=== PATIENT | male | born 1955 | race Caucasian/White ===

== ENCOUNTER 2017-07-27 10:34 | Emergency (ER) | payer MEDICARE, OTHER ==
--- NOTE | 2017-07-27 10:48 | PD ---
HPI Chief Complaint: Psychiatric Symptoms Time Seen by Provider: 10:47 Travel History International Travel<30 days: No Contact w/Intl Traveler<30days: No History of Present Illness HPI 61-year-old male presents emergency department under the [place] act for being seen in the street talking to himself and yelling at himself by a local neighbors. Patient is directable, but cannot answer questions appropriately. He is a poor historian. He has no known drug allergies. [facility] Past Medical History Medical History: Unable to Obtain Social History Alcohol Use: Yes Tobacco Use: Yes Allergies-Medications (Allergen,Severity, Reaction): Coded Allergies: No Known Allergies (Verified Allergy, Unknown, 07/27/17) Review of Systems ROS Limitations: Altered Mental Status, Psychotic Except as stated in HPI: all other systems reviewed are Neg General / Constitutional: No: Fever Eyes: No: Visual changes HENT: No: Headaches Cardiovascular: No: Chest Pain or Discomfort Respiratory: No: Shortness of Breath Gastrointestinal: No: Abdominal Pain Genitourinary: No: Dysuria Musculoskeletal: No: Pain Skin: No Rash Neurologic: No: Weakness Psychiatric: No: Depression Endocrine: No: Polydipsia Hematologic/Lymphatic: No: Easy Bruising Physical Exam Exam Limitations: Poor Historian, Psychotic Narrative GENERAL: Patient is disheveled and confused, and apparently psychotic. SKIN: Warm and dry. Normal color. Normal turgor. Patient has multiple old blisters to both feet with localized erythema and one area of pustular lesions suggestive of MRSA. No deep abscess is noted. HEAD: Atraumatic. Normocephalic. EYES: Pupils equal and round. No scleral icterus. No injection or drainage. ENT: No nasal bleeding or discharge. Mucous membranes pink and moist. Pharynx is clear. Airways patent. NECK: Trachea midline. Supple and nontender. CARDIOVASCULAR: Regular rate and rhythm. RESPIRATORY: No accessory muscle use. Clear to auscultation. Breath sounds equal bilaterally. GASTROINTESTINAL: Abdomen soft, non-tender, nondistended. Hepatic and splenic margins not palpable. MUSCULOSKELETAL: Extremities without clubbing, cyanosis, or edema. No obvious deformities. NEUROLOGICAL: Awake and alert. No obvious cranial nerve deficits. Motor grossly within normal limits. Five out of 5 muscle strength in the arms and legs. Normal speech. Data Data Last Documented VS Vital Signs Date Time Temp Pulse Resp B/P (MAP) Pulse Ox O2 Delivery O2 Flow Rate FiO2 07/27/17 16:46 73 16 160/89 (112) 100 Room Air 07/27/17 10:50 98.6 Orders Orders Complete Blood Count With Diff (07/27/17 10:54) Comprehensive Metabolic Panel (07/27/17 10:54) Thyroid Stimulating Hormone (07/27/17 10:54) Urinalysis - C+S If Indicated (07/27/17 10:54) Psych Screen (07/27/17 10:54) Drug Screen, Random Urine (07/27/17 10:54) Alcohol (Ethanol) (07/27/17 10:54) Alcohol Withdrawal Asmt-Ciwa Q4HX18 (07/27/17 10:54) Flumazenil Inj (Romazicon Inj) (07/27/17 11:00) Lorazepam (Ativan) (07/27/17 11:00) Lorazepam Inj (Ativan Inj) (07/27/17 11:00) Lorazepam (Ativan) (07/27/17 11:00) Lorazepam Inj (Ativan Inj) (07/27/17 11:00) Lorazepam Inj (Ativan Inj) (07/27/17 11:00) Lorazepam Inj (Ativan Inj) (07/27/17 11:00) Sulfamet-Trimeth Ds 800-160 Mg (Bactrim (07/27/17 11:00) Diet Regular Basic (07/27/17 Lunch) Diet Regular Basic (07/27/17 Dinner) Labs Laboratory Tests Test 07/27/17 11:30 07/27/17 13:10 Urine Color YELLOW Urine Turbidity CLEAR Urine pH 5.5 Urine Specific [place] 1.025 Urine Protein NEG mg/dL Urine Glucose (UA) NEG mg/dL Urine Ketones NEG mg/dL Urine Occult Blood TRACE Urine Nitrite NEG Urine Bilirubin NEG Urine Urobilinogen LESS THAN 2.0 MG/DL Urine Leukocyte Esterase NEG Urine RBC 6 /hpf Urine WBC LESS THAN 1 /hpf Urine Squamous Epithelial Cells <1 /hpf Urine Mucus FEW /lpf Microscopic Urinalysis Comment CULT NOT INDICATED Urine Opiates Screen NEG Urine Barbiturates Screen NEG Urine Amphetamines Screen POS Urine Benzodiazepines Screen NEG Urine Cocaine Screen NEG Urine Cannabinoids Screen NEG White Blood Count 9.3 TH/MM3 Red Blood Count 3.63 MIL/MM3 Hemoglobin 11.5 GM/DL Hematocrit 33.9 % Mean Corpuscular Volume 93.3 FL Mean Corpuscular Hemoglobin 31.5 PG Mean Corpuscular Hemoglobin Concent 33.8 % Red Cell Distribution Width 13.6 % Platelet Count 384 TH/MM3 Mean Platelet Volume 6.2 FL Neutrophils (%) (Auto) 65.2 % Lymphocytes (%) (Auto) 18.6 % Monocytes (%) (Auto) 13.8 % Eosinophils (%) (Auto) 1.3 % Basophils (%) (Auto) 1.1 % Neutrophils # (Auto) 6.1 TH/MM3 Lymphocytes # (Auto) 1.7 TH/MM3 Monocytes # (Auto) 1.3 TH/MM3 Eosinophils # (Auto) 0.1 TH/MM3 Basophils # (Auto) 0.1 TH/MM3 CBC Comment DIFF FINAL Differential Comment Blood Urea Nitrogen 18 MG/DL Creatinine 0.64 MG/DL Random Glucose 95 MG/DL Total Protein 6.6 GM/DL Albumin 3.2 GM/DL Calcium Level 8.0 MG/DL Alkaline Phosphatase 60 U/L Aspartate Amino Transf (AST/SGOT) 20 U/L Alanine Aminotransferase (ALT/SGPT) 21 U/L Total Bilirubin 0.2 MG/DL Sodium Level 136 MEQ/L Potassium Level 3.7 MEQ/L Chloride Level 102 MEQ/L Carbon Dioxide Level 25.5 MEQ/L Anion Gap 9 MEQ/L Estimat Glomerular Filtration Rate 127 ML/MIN Thyroid Stimulating Hormone 3rd Gen 0.937 uIU/ML Ethyl Alcohol Level LESS THAN 3 MG/DL MDM Medical Decision Making Medical Screen Exam Complete: Yes Emergency Medical Condition: Yes Differential Diagnosis Psychosis. Bipolar disorder. [place] act. Narrative Course Patient appears medically stable at this time. Psychiatric labs ordered per protocol. Patient is started on Bactrim DS twice daily. Patient is placed on the CIWA protocol. CBC remarkable for hemoglobin of 11.5, hematocrit is 33.9. Urine tox screen is positive for amphetamines. Urinalysis shows trace of occult blood but otherwise normal. Patient is medically cleared for psychiatric evaluation. Psych screen is ordered. Condition: Stable Kin Zarate Jul 27, 2017 10:48
[2017-07-27 10:50] VITALS: BP 157/75; PULSE 81; RESP 20; TEMP 98.6; O2SAT 99
[2017-07-27] MEDS ORDERED: LORazepam 1 MG TAB PO PRN (11:00)
[2017-07-27] MEDS ORDERED: LORazepam 2 MG TAB PO PRN (11:00)
[2017-07-27] MEDS ORDERED: LORazepam 2 MG/ML VIAL IV PUSH PRN ×3 (11:00)
[2017-07-27] MEDS ORDERED: FLUMAZENIL 0.5 MG/5 ML VIAL IV PUSH PRN (11:00)
[2017-07-27] MEDS: LORazepam 2 MG/ML VIAL IV PUSH PRN ×2 (12:18→18:29)
[2017-07-27 13:25] LABS: BILIRUBIN, URINE NEG (NEG); BLOOD, URINE TRACE (NEG); GLUCOSE,URINE NEG (NEG); KETONE, URINE NEG (NEG); MUCUS URINE FEW /lpf (OCC); NITRITE,URINE NEG (NEG); PH, URINE 5.5 (5.0-8.5); SQUAMOUS EPITHELIAL CELL URINE <1 /hpf (0-5); URINE COLOR YELLOW (YELLW/STRAW); URINE LEUKOCYTE ESTERASE NEG (NEG)
[2017-07-27 13:46] LABS: AUTOMATED NEUTROPHIL # 6.1 TH/MM3 (1.8-7.7); BASOPHIL # 0.1 TH/MM3 (0-0.2); BASOPHIL % 1.1 % (0.0-2.0); EOSINOPHIL # 0.1 TH/MM3 (0-0.4); EOSINOPHIL % 1.3 % (0.0-4.0); HEMATOCRIT 33.9 % (39.0-51.0); HEMOGLOBIN 11.5 GM/DL (13.0-17.0); LYMPH % 18.6 % (9.0-44.0); LYMPHOCYTE # 1.7 TH/MM3 (1.0-4.8); MEAN CELL VOLUME 93.3 FL (80.0-100.0); MEAN CORPUSCULAR HEMOGLOBIN 31.5 PG (27.0-34.0); MEAN CORPUSCULAR HGB CONC 33.8 % (32.0-36.0); MEAN PLATELET VOLUME 6.2 FL (7.0-11.0); MONO % 13.8 % (0.0-8.0); MONOCYTE # 1.3 TH/MM3 (0-0.9); NEUT % 65.2 % (16.0-70.0); PLATELET COUNT 384 TH/MM3 (150-450); RED BLOOD COUNT 3.63 MIL/MM3 (4.50-5.90); RED CELL DISTRIBUTION WIDTH 13.6 % (11.6-17.2); WHITE BLOOD COUNT 9.3 TH/MM3 (4.0-11.0)
[2017-07-27 14:03] LABS: ALBUMIN 3.2 GM/DL (3.4-5.0); ALT (GPT) 21 U/L (12-78); AST (GOT) 20 U/L (15-37); BICARBONATE 25.5 MEQ/L (21.0-32.0); BLOOD UREA NITROGEN 18 MG/DL (7-18); CHLORIDE 102 MEQ/L (98-107); CREATININE 0.64 MG/DL (0.60-1.30); GLOMERULAR FILTRATION RATE 127 ML/MIN (>89); GLUCOSE,RANDOM 95 MG/DL (74-106); SODIUM (NA) 136 MEQ/L (136-145)
[2017-07-27 14:13] LABS: ALKALINE PHOSPHATASE 60 U/L (45-117); TOTAL BILIRUBIN ADULT 0.2 MG/DL (0.2-1.0); TOTAL PROTEIN 6.6 GM/DL (6.4-8.2)
[2017-07-27] MEDS: SULFAMETHOXAZOLE-TRIMETHOPRIM DS 800-160 MG TAB PO SCH ×2 (16:43→21:04)
[2017-07-27 16:46] VITALS: BP 160/89; PULSE 73; RESP 16; O2SAT 100
[2017-07-27] MEDS ORDERED: HALOPERIDOL LACTATE 5 MG/ML AMP IM ONE (18:30)
[2017-07-27] MEDS ORDERED: diphenhydrAMINE HCL 50 MG/ML VIAL IM ONE (18:30)
[2017-07-27 22:22] VITALS: RESP 16
[2017-07-28 06:12] VITALS: BP 139/80; PULSE 74; RESP 18; TEMP 98.1; O2SAT 99
--- NOTE | 2017-07-28 09:05 | PD ---
Physical Exam Date Seen by Provider: Jul 28, 2017 Time Seen by Provider: 09:04 Narrative 61-year-old male previously [place] acted and medically cleared for psychiatric evaluation, has been seen and evaluated by psychiatric staff and deemed psychiatrically stable for discharge at this time. Patient remains medically stable for discharge. Follow-up will be based on psychiatric note. Data Data Last Documented VS Vital Signs Date Time Temp Pulse Resp B/P (MAP) Pulse Ox O2 Delivery O2 Flow Rate FiO2 07/28/17 06:12 98.1 74 18 139/80 (99) 99 Room Air Orders Orders Complete Blood Count With Diff (07/27/17 10:54) Comprehensive Metabolic Panel (07/27/17 10:54) Thyroid Stimulating Hormone (07/27/17 10:54) Urinalysis - C+S If Indicated (07/27/17 10:54) Psych Screen (07/27/17 10:54) Drug Screen, Random Urine (07/27/17 10:54) Alcohol (Ethanol) (07/27/17 10:54) Alcohol Withdrawal Asmt-Ciwa Q4HX18 (07/27/17 10:54) Flumazenil Inj (Romazicon Inj) (07/27/17 11:00) Lorazepam (Ativan) (07/27/17 11:00) Lorazepam Inj (Ativan Inj) (07/27/17 11:00) Lorazepam (Ativan) (07/27/17 11:00) Lorazepam Inj (Ativan Inj) (07/27/17 11:00) Lorazepam Inj (Ativan Inj) (07/27/17 11:00) Lorazepam Inj (Ativan Inj) (07/27/17 11:00) Sulfamet-Trimeth Ds 800-160 Mg (Bactrim (07/27/17 11:00) Diet Regular Basic (07/27/17 Lunch) Diet Regular Basic (07/27/17 Dinner) Haloperidol Inj (Haldol Inj) (07/27/17 18:30) Diphenhydramine Inj (Benadryl Inj) (07/27/17 18:30) Diet Regular Basic (07/28/17 Breakfast) Labs Laboratory Tests Test 07/27/17 11:30 07/27/17 13:10 Urine Color YELLOW Urine Turbidity CLEAR Urine pH 5.5 Urine Specific [place] 1.025 Urine Protein NEG mg/dL Urine Glucose (UA) NEG mg/dL Urine Ketones NEG mg/dL Urine Occult Blood TRACE Urine Nitrite NEG Urine Bilirubin NEG Urine Urobilinogen LESS THAN 2.0 MG/DL Urine Leukocyte Esterase NEG Urine RBC 6 /hpf Urine WBC LESS THAN 1 /hpf Urine Squamous Epithelial Cells <1 /hpf Urine Mucus FEW /lpf Microscopic Urinalysis Comment CULT NOT INDICATED Urine Opiates Screen NEG Urine Barbiturates Screen NEG Urine Amphetamines Screen POS Urine Benzodiazepines Screen NEG Urine Cocaine Screen NEG Urine Cannabinoids Screen NEG White Blood Count 9.3 TH/MM3 Red Blood Count 3.63 MIL/MM3 Hemoglobin 11.5 GM/DL Hematocrit 33.9 % Mean Corpuscular Volume 93.3 FL Mean Corpuscular Hemoglobin 31.5 PG Mean Corpuscular Hemoglobin Concent 33.8 % Red Cell Distribution Width 13.6 % Platelet Count 384 TH/MM3 Mean Platelet Volume 6.2 FL Neutrophils (%) (Auto) 65.2 % Lymphocytes (%) (Auto) 18.6 % Monocytes (%) (Auto) 13.8 % Eosinophils (%) (Auto) 1.3 % Basophils (%) (Auto) 1.1 % Neutrophils # (Auto) 6.1 TH/MM3 Lymphocytes # (Auto) 1.7 TH/MM3 Monocytes # (Auto) 1.3 TH/MM3 Eosinophils # (Auto) 0.1 TH/MM3 Basophils # (Auto) 0.1 TH/MM3 CBC Comment DIFF FINAL Differential Comment Blood Urea Nitrogen 18 MG/DL Creatinine 0.64 MG/DL Random Glucose 95 MG/DL Total Protein 6.6 GM/DL Albumin 3.2 GM/DL Calcium Level 8.0 MG/DL Alkaline Phosphatase 60 U/L Aspartate Amino Transf (AST/SGOT) 20 U/L Alanine Aminotransferase (ALT/SGPT) 21 U/L Total Bilirubin 0.2 MG/DL Sodium Level 136 MEQ/L Potassium Level 3.7 MEQ/L Chloride Level 102 MEQ/L Carbon Dioxide Level 25.5 MEQ/L Anion Gap 9 MEQ/L Estimat Glomerular Filtration Rate 127 ML/MIN Thyroid Stimulating Hormone 3rd Gen 0.937 uIU/ML Ethyl Alcohol Level LESS THAN 3 MG/DL [facility] Medical Record Reviewed: Yes Supervised Visit with CHANDNI: Yes Narrative Course 61-year-old male previously [place] acted and medically cleared for psychiatric evaluation, has been seen and evaluated by psychiatric staff and deemed psychiatrically stable for discharge at this time. Patient remains medically stable for discharge. Follow-up will be based on psychiatric note. Patient Instructions: General Instructions Disposition: 01 DISCHARGE HOME Condition: Stable Kin Zarate Jul 28, 2017 09:05
[2017-07-28] MEDS: SULFAMETHOXAZOLE-TRIMETHOPRIM DS 800-160 MG TAB PO SCH (09:43)
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
[2017-07-29] MEDS ORDERED: BACT800T5 PO (09:56)
== END 2017-07-28 10:35 | disposition home or self-care (01) ==
LOC: NEPJ 10:34
DX: F15.229 Other stimulant dependence with intoxication, unspecified (principal); D64.9 Anemia, unspecified; Z72.0 Tobacco use; R41.82 Altered mental status, unspecified; Z59.0 Homelessness
CPT/HCPCS: 80053; 80307; 81001; 84443; 85025; 96372; 96374; 99284; J1200; J1630; J2060

== ENCOUNTER 2017-07-29 09:19 | Emergency (ER) | payer MEDICARE, OTHER ==
[~2017-07-29] VITALS: Ht 180.3 cm; Wt 80.0 kg
[2017-07-29 09:37] VITALS: BP 131/70; PULSE 90; RESP 18; TEMP 98.5; O2SAT 96
[2017-07-29] MEDS ORDERED: BACT800T5 PO (09:56)
[2017-07-29] MEDS ORDERED: SULFAMETHOXAZOLE-TRIMETHOPRIM DS 800-160 MG TAB PO ONE (10:00)
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
== END 2017-07-29 11:28 | disposition home or self-care (01) ==
LOC: NEPD 09:19
DX: T69.029A Immersion foot, unspecified foot, initial encounter (principal); S90.829A Blister (nonthermal), unspecified foot, initial encounter; I10 Essential (primary) hypertension; F20.9 Schizophrenia, unspecified; F17.210 Nicotine dependence, cigarettes, uncomplicated; X58.XXXA Exposure to other specified factors, initial encounter
CPT/HCPCS: 99283